=== PATIENT | male | born 1960 | race Caucasian/White ===

== ENCOUNTER 2023-10-28 05:38 | Outpatient (CLI) | payer OTHER ==
[~2023-10-28] VITALS: Ht 180.3 cm; Wt 108.1 kg
[2023-10-29] MEDS ORDERED: NF-VITD400 PO (13:29)
[2023-10-29] MEDS ORDERED: LISI20TA26 PO (13:29)
[2023-10-29] MEDS ORDERED: ALFU10TA PO (13:29)
[2023-10-29] MEDS ORDERED: ROSU20TA73 PO (13:29)
[2023-10-29] MEDS ORDERED: ASPI-1238 PO (13:29)
== END 2023-10-29 13:37 | disposition home or self-care (01) ==
LOC: PREOP 05:38
PROVIDERS: ATTEND Surgery
DX: Z01.818 Encounter for other preprocedural examination (principal)